=== PATIENT | female | born 1945 | race Caucasian/White ===

== ENCOUNTER 2025-01-29 14:36 | Outpatient (CLI) | payer MEDICARE, SELFPAY ==
--- NOTE | ~2025-01-29 | DEXA_ITS ---
Bone Density Report Name: DANI DOUGLASS Age: 79 Sex: Female Ethnicity: White Date of : 1945 Indication: postmenopausal; screening for osteoporosis; height loss; inflammatory bowel disease; prior fracture; hysterectomy; Referring Provider: UNIQUE ANDREW Study: Bone densitometry was performed. Exam Date: January 29, 2025 Accession number: [id number] Bone Density: Region BMD T-score Z-score Classification AP Spine(L1-L4) 1.016 -0.3 2.4 Normal Femoral Neck (Left) 0.642 -1.9 0.5 Osteopenia Total Hip (Left) 0.744 -1.6 0.5 Osteopenia Femoral Neck (Right) 0.623 -2.0 0.3 Osteopenia Total Hip (Right) 0.735 -1.7 0.4 Osteopenia Total Hip Mean 0.740 -1.7 0.5 Osteopenia World Health Organization criteria for BMD impression classify patients as: Normal (T-score at or above -1.0), Osteopenia (T-score between -1.0 and -2.5), or Osteoporosis (T-score at or below -2.5). 10-year Fracture Risk: FRAX not reported because: Treated for osteoporosis Clinical Information Provided by Patient: Has had a low trauma fracture Is being treated for osteoporosis Has used the following medications: Reclast (i.e. zoledronate), Vitamin D, Calcium Has the following medical conditions: Inflammatory bowel diseases, Hysterectomy Patient maximum height was 63 Menopause Age: 49 Does not regularly consume dairy products Drinks caffeinated beverages Onset of menses at age 12 Number of children 3 Impression: The patient has low bone mass, based on the Right Femoral Neck T-score. The patient has risk factors, including: previous fracture. Discussion: It is important to ask patients whether they are taking their medications and to encourage continued and appropriate compliance with their osteoporosis therapies to reduce fracture risk. It is also important to review their risk factors and encourage appropriate calcium and vitamin D intakes, exercise, fall prevention and other lifestyle measures. Follow-Up: Consider a repeat BMD and Vertebral Fracture Assessment (VFA) exam in 2 years or sooner if medically necessary, to reassess this patient's status. Reported by: SCARLETT on 01/29/2025 3:03:00 PM. Reviewed, dictated and finalized at location A.
== END 2025-01-29 14:37 | disposition home or self-care (01) ==
LOC: MICIMG 14:37
PROVIDERS: PCP Nurse Practitioner Family; Visit Provider Nurse Practitioner Family
DX: M81.0 Age-related osteoporosis without current pathological fracture (principal); M85.89 Other specified disorders of bone density and structure, multiple sites; Z13.820 Encounter for screening for osteoporosis
CPT/HCPCS: 77080

== ENCOUNTER 2025-02-11 12:32 | Outpatient (CLI) | payer MEDICARE, SELFPAY ==
--- NOTE | 2025-02-11 12:48 | ECHO_ITS ---
Patient Info Name: Shilpi Hopkins Age: 79 years : 1945 Gender: Female Ht: 61 in Wt: 112 lbs BSA: 1.48 m2 HR: 78 bpm BP: 138 / 91 mmHg Technical Quality: Fair Exam Date: 02/11/2025 1:00 PM Patient Status: O Admit Date: 02/11/2025 Exam Type: CA echo doppler color flow Complete two-dimensional, color flow and Doppler transthoracic echocardiogram is performed. [employer] Sales Engineer: Adelita Ulloa Attending Provider: Maxx Sims DO Summary 1. Complete two-dimensional, color flow and Doppler transthoracic echocardiogram is performed. 2. Left ventricular chamber dimension is mildly enlarged. 3. Left ventricular systolic function is preserved, estimated at 50-55. 4. The left ventricular diastolic function is grade I diastolic dysfunction. 5. E/e' 12 is mildly elevated. 6. Left atrial chamber dimension is mildly enlarged. 7. There is mild mitral valve regurgitation. 8. There is trace tricuspid valve regurgitation. 9. No pulmonary hypertension, estimated pulmonary arterial systolic pressure is 35 mmHg. Left Ventricle E/e' 12 is mildly elevated. Left ventricular chamber dimension is mildly enlarged. Left ventricular systolic function is preserved, estimated at 50-55. The left ventricular diastolic function is grade I diastolic dysfunction. Right Ventricle Right ventricular chamber dimension is normal. Right ventricular systolic function is normal and with normal TAPSE 2.2 cm. Left Atria Left atrial chamber dimension is mildly enlarged. Right Atria Right atrial chamber dimension is normal. Aortic Valve The aortic valve is trileaflet. There is no aortic valve stenosis. There is no aortic valve regurgitation. Pulmonic Valve There is no pulmonic regurgitation. Mitral Valve There is no mitral valve stenosis. There is mild mitral valve regurgitation. Tricuspid Valve There is trace tricuspid valve regurgitation. No pulmonary hypertension, estimated pulmonary arterial systolic pressure is 35 mmHg. Pericardium/Pleural There is no pericardial effusion. Inferior Vena Cava Normal inferior vena cava with >50% collapse upon inspiration consistent with normal right atrial pressure, 5 mmHg. Aorta The aortic root size at the sinus of Valsalva is normal. Left Ventricular Outflow Tract Name Value Normal LVOT 2D LVOT Diameter 1.9 cm LVOT Doppler LVOT Peak Velocity 77 cm/s LVOT Peak Gradient 2 mmHg LVOT Mean Gradient 1 mmHg LVOT VTI 16 cm LVOT VTI/AV VTI Ratio 1.0 LVOT Stroke Volume 47 ml LVOT CO 3.4 l/min LVOT CI 2.3 l/min/m2 Pulmonic Valve Name Value Normal RVOT Doppler RVOT Peak Velocity 61 cm/s RVOT Peak Gradient 2 mmHg PV Doppler PV Peak Velocity 65 cm/s PV Peak Gradient 2 mmHg Mitral Valve Name Value Normal MV Diastolic Function MV E Peak Velocity 66 cm/s MV A Peak Velocity 114 cm/s MV E/A 0.6 MV Decel Time (PW) 180 ms Tricuspid Valve Name Value Normal TV Regurgitation Doppler TR Peak Velocity 273 cm/s TR Peak Gradient 22 mmHg Estimated PAP/RSVP RA Pressure 5 mmHg <=5 PA Systolic Pressure 35 mmHg <36 RV Systolic Pressure 35 mmHg <36 TV Annular TDI TV Lateral Gay s' Velocity 11.7 cm/s >=9.5 Aorta Name Value Normal Ascending Aorta Ao Root Diameter (MM) 2.6 cm Ao Root Diam Index (MM) 1.8 cm/m2 Aortic Valve Name Value Normal AV Doppler AV Peak Velocity 79 cm/s AV Peak Gradient 2 mmHg AV Mean Gradient 2 mmHg AV VTI 17 cm AV Area (Cont Eq VTI) 2.8 cm2 >=3.0 AV Area (Cont Eq Ba) 2.8 cm2 AV DI (Ba) 0.98 AV Regurgitation 2D LVOT Area 2.9 cm2 Ventricles Name Value Normal LV Dimensions 2D/MM IVS Diastolic Thickness (2D) 0.9 cm 0.6-1.0 IVS Diastole Thickness (MM) 0.9 cm 0.6-0.9 LVID Diastole (2D) 4.7 cm 3.8-5.2 LVID Diastole (MM) 5.2 cm 3.8-5.2 LVIW Diastolic Thickness (2D) 0.8 cm 0.6-0.9 LVIW Diastolic Thickness (MM) 0.5 cm 0.6-0.9 LVID Systole (2D) 3.4 cm 2.2-3.5 LVID Systole (MM) 3.2 cm 2.2-3.5 LVOT Diameter 1.9 cm LV Mass (2D Cubed) 132.47 g 67.00-162.00 LV Mass Index (2D Cubed) 89 g/m2 43-95 Relative Wall Thickness (2D) 0.33 <=0.42 LV Mass (MM Cubed) 131.21 g 67.00-162.00 LV Mass Index (MM Cubed) 89 g/m2 43-95 Relative Wall Thickness (MM) 0.21 LV Fractional Shortening/Ejection Fraction 2D/MM LV Fractional Shortening (2D) 27 % 27-45 LV Fractional Shortening (MM) 38 % 27-45 LV EF (MM Teichholz) 68 % LV EF (2D Teichholz) 52 % LV Diastolic Volume (4C MOD) 62 ml LV EF (4C MOD) 55 % LV Diastolic Volume (2C MOD) 39 ml LV EF (2C MOD) 45 % LV Diastolic Volume (BP MOD) 50 ml 46-106 LV Diastolic Volume Index (BP MOD) 34 ml/m2 29-61 LV Systolic Volume (BP MOD) 25 ml 14-42 LV Systolic Volume Index (BP MOD) 17 ml/m2 8-24 LV EF (BP MOD) 50 % 54-74 LV Diastolic Length (4C) 6.9 cm LV Systolic Length (4C) 5.8 cm LV Stroke Volume (4C MOD) 34 ml Atria Name Value Normal LA Dimensions LA Dimension (MM) 3.2 cm 2.7-3.8 LA Volume (4C A-L) 33 ml LA Volume (BP A-L) 32 ml RA Dimensions RA Systolic Major [place] Length (4C) 4.5 cm 2.2-2.8 RA Area (4C) 13.7 cm2 <=18.0 Report Signatures
== END 2025-02-11 12:33 | disposition home or self-care (01) ==
PROVIDERS: PCP Nurse Practitioner Family; Visit Provider Internal Medicine Cardiovascular Disease
DX: R93.1 Abnormal findings on diagnostic imaging of heart and coronary circulation (principal); R06.09 Other forms of dyspnea
CPT/HCPCS: 93306

== ENCOUNTER 2025-02-27 14:47 | Outpatient (CLI) | payer MEDICARE, SELFPAY ==
--- NOTE | ~2025-02-27 | XR_ITS ---
EXAMINATION: XR chest 2V 02/27/2025 15:24 INDICATION: Cough for 2 weeks PROCEDURE: 2 view chest COMPARISON: No prior studies for comparison. FINDINGS: The lungs are clear. The cardiomediastinal silhouette is within normal limits. There are no pleural effusions. There is no pneumothorax suspected. There is apical pleural thickening/scarring. The lungs are hyperinflated which is consistent with, but not diagnostic of chronic obstructive pulmonary disease. There is a wedge compression deformity of a lower thoracic vertebra, likely chronic. IMPRESSION: 1: NO ACUTE CARDIOPULMONARY DISEASE. Reviewed, dictated and finalized at location O.
== END 2025-02-27 14:48 | disposition home or self-care (01) ==
PROVIDERS: PCP Nurse Practitioner; Visit Provider Nurse Practitioner
DX: R05.9 Cough, unspecified (principal)
CPT/HCPCS: 71046

== ENCOUNTER 2025-03-06 12:43 | Outpatient (CLI) | payer MEDICARE, SELFPAY ==
--- NOTE | ~2025-03-06 | US_ITS ---
US soft tissue head and neck 03/06/2025 13:25 Indication: Palpable areas under right chin and submandibular area Procedure: Soft tissue ultrasound of the right neck in the submandibular location Comparison: No prior studies for comparison. Findings: There are 2 small normal-appearing right submandibular lymph nodes. No lymphadenopathy. No other masses or fluid collections are identified. Impression: 1: Unremarkable soft tissue ultrasound of the right neck/submandibular area. No suspicious masses identified. Reviewed, dictated and finalized at location O. Impression: 1: Unremarkable soft tissue ultrasound of the right neck/submandibular area. No suspicious masses identified.
== END 2025-03-06 12:44 | disposition home or self-care (01) ==
LOC: MICIMG 12:44
PROVIDERS: PCP Nurse Practitioner Family; Visit Provider Nurse Practitioner
DX: R59.0 Localized enlarged lymph nodes (principal)
CPT/HCPCS: 76536